=== PATIENT | male | born 1970 | race Caucasian/White ===

== ENCOUNTER 2017-01-03 23:05 | Emergency (ER) | payer SELFPAY ==
[~2017-01-03] VITALS: Ht 180.3 cm; Wt 99.8 kg
[~2017-01-03 23:05] MED LIST: VICODIN 5/500 T1 TAB PO
[2017-01-03] MEDS ORDERED: NO MEDICATIONS (23:21)
== END 2017-01-04 01:53 | disposition home or self-care (01) ==
LOC: SED 23:05
DX: L02.416 Cutaneous abscess of left lower limb (principal); L02.511 Cutaneous abscess of right hand; F17.200 Nicotine dependence, unspecified, uncomplicated
CPT/HCPCS: 10060; 87070; 87077; 87186; 87205; 99282